=== PATIENT | male | born 1975 | race Hispanic/Latino ===

== ENCOUNTER 2018-01-04 23:56 | Inpatient (IN) | payer BC, OTHER ==
[2018-01-05] MEDS ORDERED: CEFAZOLIN 1 GM VIAL ONE (00:06)
[2018-01-05] MEDS ORDERED: Adacel (T-DAP) 0.5 ML VIAL ONE (00:06)
[2018-01-05 00:09] LABS: #Basophils 0.1 thou/uL (0.0-0.2); #Eosinphils 0.2 thou/uL (0.0-0.7); #Lymphocytes 3.5 thou/uL (1.20-3.40); #Monocytes 0.5 thou/uL (0.11-0.59); #Neutrophils 6.8 thou/uL (1.40-6.50); %Eosinophils 1.4 % (0.0-10.0); %Lymphocytes 31.4 % (21.0-51.0); %Monocytes 4.7 % (0.0-10.0); %Neutrophils 61.5 % (42.0-75.0); Hemoglobin 12.9 g/dL (14.0-18.0); Mean Corpuscular HGB CONC 32.3 g/dL (32.0-36.0); Mean Corpuscular Hemoglobin 30.7 pg (27.0-31.0); Mean Corpuscular Volume 95.1 fL (78.0-98.0); Platelet Count 366 thou/uL (130-400); RBC Distribution Width 13.5 % (11.5-14.5)
[2018-01-05 00:30] LABS: Alcohol 291 mg/dL (Less than 10); Lipase 91 U/L (8-78)
[2018-01-05 00:32] LABS: ALT (SGPT) 74 U/L (8-55); AST (SGOT) 131 U/L (5-34); Albumin 3.8 g/dL (3.5-5.0); Alkaline Phosphatase 154 U/L (40-150); Anion Gap 14 mmol/L (10-20); BUN (Urea Nitrogen) 9 mg/dL (8.9-20.6); Bilirubin, Total 0.4 mg/dL (0.2-1.2); Calc. Creatinine Clearance 0 mL/min (70-130); Calcium 8.3 mg/dL (7.8-10.44); Carbon Dioxide 24 mmol/L (22-29); Chloride 108 mmol/L (98-107); Estimated GFR-MDRD Greater than 90; Globulin 2.8 g/dL (2.4-3.5); Glucose 110 mg/dL (70-105); Potassium 4.1 mmol/L (3.5-5.1); Protein, Total 6.6 g/dL (6.0-8.3); Sodium 142 mmol/L (136-145)
[2018-01-05] MEDS ORDERED: Lidocaine 1% (PF) 30 ML VIAL ONE (00:36)
[2018-01-05 01:54] LABS: Bilirubin Negative (Negative); Blood, Urine Small (Negative); Clarity CLEAR (Clear); Glucose, Urine (Dipstick) Negative (Negative); Leukocyte Negative (Negative); Nitrite Negative (Negative); Protein, Urine (Dipstick) 30 mg/dL (Neg-Trace); Specific Gravity, Urine 1.038 (1.002-1.036); Urobilinogen 0.2 mg/dL (0.2-1.0); pH, Urine 6.5 (5.0-9.0)
[2018-01-05 01:55] LABS: Bacteria/HPF None Seen HPF (None Seen); Hyaline Casts/LPF 0-3 HYALINE CAST LPF (0-3 Hyaline); Pathc Cast-AUWi Flag 0.58 (0-2.49); Squamous Epithelial 0-3 HPF (0-3)
[2018-01-05 02:07] LABS: Oval Fat Bodies/HPF None Seen HPF (None Seen); Renal Epithelial None Seen HPF (0-3); Transitional Epithelial NONE SEEN HPF (0-3); Trichomonas/HPF None Seen HPF (None Seen); Yeast-All Forms None Seen HPF (None Seen)
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
[2018-01-05] MEDS ORDERED: Ondansetron PF 4 MG/2 ML Vial IVP PRN (03:33)
[2018-01-05] MEDS ORDERED: Ondansetron ODT 4 MG TAB PO PRN (03:33)
[2018-01-05] MEDS ORDERED: hydrALAZINE 20 MG/ML VIAL SLOW IVP PRN (03:33)
[2018-01-05] MEDS ORDERED: Dextrose 5% in Water 1,000 ML IV PRN (03:33)
[2018-01-05] MEDS ORDERED: Dextrose 50% Abboject 50 ML SYRINGE SLOW IVP PRN (03:33)
[2018-01-05] MEDS ORDERED: Promethazine HCl 25 MG/ML VIAL IM PRN ×2 (03:33)
[2018-01-05] MEDS ORDERED: Morphine 2 MG/ML SYRINGE SLOW IVP PRN (03:33)
[2018-01-05 03:38] VITALS: BMI 25.3
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
[2018-01-05] MEDS: Sodium Chloride 0.9% 1,000 ML IV SCH ×3 (04:02→21:13)
[2018-01-05] MEDS ORDERED: Acetaminophen 1,000 MG in Premix Bag 1 BAG IVPB SCH (06:00)
[2018-01-05] MEDS ORDERED: CEFAZOLIN 1 GM VIAL SLOW IVP SCH (06:00)
[2018-01-05] MEDS ORDERED: Ketorolac Tromethamine 30 MG/ML VIAL IVP SCH (06:00)
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
--- NOTE | 2018-01-05 08:51 | CT ---
FINAL REPORT BRAIN CT WITHOUT IV CONTRAST: Emergency after hours exam 01-05-18 at 12:13 a.m. FINDINGS: Left frontal scalp swelling and laceration. Small right sided several convexity subdural hematoma up to 0.5 cm in thickness without significant mass effect or midline shift. Left sided anterior temporal arachnoid cyst. Code QA/Agree with [facility]. POS: [facility]
[2018-01-05] MEDS ORDERED: ISOVUE-370 76%-LOCM 1 ML ONE (08:52)
[2018-01-05] MEDS: Famotidine 20 MG TAB PO SCH ×2 (09:20→21:25)
--- NOTE | 2018-01-05 09:36 | RAD ---
LEFT KNEE FOUR VIEWS: History: Trauma Comparison: None FINDINGS: There is gas within the left suprapatellar recess. There is a comminuted patellar fracture, predomina tely in the sagittal plate orientation. Moderate joint effusion. No tibial plateau fracture is appreciated. IMPRESSION: Mildly comminuted patellar fracture with fracture lines in the sagittal oblique orientation. POS: [facility]
[2018-01-05] MEDS ORDERED: traMADol HCl 50 MG TAB PO PRN (09:54)
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
[2018-01-05] MEDS: Acetaminophen 500 MG TAB PO SCH ×2 (12:35→17:44)
[2018-01-05] MEDS: Ibuprofen 800 MG TAB PO SCH ×2 (12:36→21:25)
[2018-01-05] MEDS ORDERED: Nicotine 14 MG PATCH TD SCH (16:30)
[2018-01-05] MEDS: traMADol HCl 50 MG TAB PO PRN (17:44)
[2018-01-06] MEDS: traMADol HCl 50 MG TAB PO PRN ×3 (00:49→13:10)
[2018-01-06] MEDS: Acetaminophen 500 MG TAB PO SCH ×3 (00:50→13:05)
[2018-01-06] MEDS: Sodium Chloride 0.9% 1,000 ML IV SCH (03:18)
[2018-01-06 06:02] LABS: #Eosinphils 0.1 thou/uL (0.0-0.7); #Lymphocytes 1.4 thou/uL (1.20-3.40); #Monocytes 0.5 thou/uL (0.11-0.59); #Neutrophils 3.3 thou/uL (1.40-6.50); %Basophils 0.9 % (0.0-1.0); %Eosinophils 1.7 % (0.0-10.0); %Lymphocytes 26.3 % (21.0-51.0); %Monocytes 8.8 % (0.0-10.0); %Neutrophils 62.4 % (42.0-75.0); Hemoglobin 10.4 g/dL (14.0-18.0); Mean Corpuscular HGB CONC 32.5 g/dL (32.0-36.0); Mean Corpuscular Volume 95.5 fL (78.0-98.0); Mean Platelet Volume 7.6 fL (7.4-10.4); Platelet Count 152 thou/uL (130-400); Red Blood Cell (RBC) Count 3.35 mill/uL (4.70-6.10); White Blood Cell (WBC) Count 5.3 thou/uL (4.8-10.8)
[2018-01-06 06:20] LABS: ALT (SGPT) 56 U/L (8-55); AST (SGOT) 104 U/L (5-34); Albumin 3.4 g/dL (3.5-5.0); Alkaline Phosphatase 102 U/L (40-150); Anion Gap 12 mmol/L (10-20); BUN (Urea Nitrogen) 11 mg/dL (8.9-20.6); Bilirubin, Direct 0.7 mg/dL (0.1-0.3); Bilirubin, Total 1.4 mg/dL (0.2-1.2); Calc. Creatinine Clearance 172 mL/min (70-130); Calcium 7.8 mg/dL (7.8-10.44); Carbon Dioxide 23 mmol/L (22-29); Chloride 106 mmol/L (98-107); Estimated GFR-MDRD Greater than 90; Glucose 82 mg/dL (70-105); Potassium 3.3 mmol/L (3.5-5.1); Protein, Total 6.2 g/dL (6.0-8.3); Sodium 138 mmol/L (136-145)
[2018-01-06] MEDS: Ibuprofen 800 MG TAB PO SCH ×2 (06:46→14:50)
[2018-01-06] MEDS: Famotidine 20 MG TAB PO SCH (08:39)
[2018-01-06 16:40] VITALS: BP 133/85; TEMP 98
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
== END 2018-01-06 17:25 | disposition home or self-care (01) | DRG 964 ==
LOC: ERS 23:56 → IMCU/EMU 01-05 02:03 → SURG A 01-05 13:40
PROVIDERS: ADMIT Specialist; ATTEND Specialist
PROC: 0HQ1XZZ Repair Face Skin, External Approach (ICD-10-PCS; principal; 2018-01-05)
PROC: 0HQLXZZ Repair Left Lower Leg Skin, External Approach (ICD-10-PCS; 2018-01-05)
DX: S06.5X9A Traumatic subdural hemorrhage with loss of consciousness of unspecified duration, initial encounter (principal); S82.045A Nondisplaced comminuted fracture of left patella, initial encounter for closed fracture; S27.329A Contusion of lung, unspecified, initial encounter; S22.31XA Fracture of one rib, right side, initial encounter for closed fracture; S36.00XA Unspecified injury of spleen, initial encounter; V89.2XXA Person injured in unspecified motor-vehicle accident, traffic, initial encounter; S01.81XA Laceration without foreign body of other part of head, initial encounter; S81.012A Laceration without foreign body, left knee, initial encounter; F10.129 Alcohol abuse with intoxication, unspecified; Y90.9 Presence of alcohol in blood, level not specified
CPT/HCPCS: 12032; 36415; 36416; 70450; 71045; 71260; 72125; 72170; 74177; 80048; 80053; 80076; 80307; 81003; 81015; 83690; 85025; 90471; 90715; 94760; 96365; G0390; G8978-GP-CI; G8979-GP-CI; G8980-GP-CI; G8987-GO-CJ; G8988-GO-CJ; G8989-GO-CJ; J0131; J0690; J1885; J2001; J2270

== ENCOUNTER 2018-01-13 18:39 | Emergency (ER) | payer BC, OTHER | END 2018-01-13 19:42 | disposition home or self-care (01) | LOC: ERS 18:39 | DX: S81.811D Laceration without foreign body, right lower leg, subsequent encounter (principal); S01.112D Laceration without foreign body of left eyelid and periocular area, subsequent encounter; I10 Essential (primary) hypertension; F17.210 Nicotine dependence, cigarettes, uncomplicated ==